=== PATIENT | female | born 1995 | race Two or more races ===

== ENCOUNTER 2018-03-09 11:45 | Outpatient (CLI) | END 2018-03-09 13:30 | disposition home or self-care (01) ==

== ENCOUNTER 2018-09-19 21:11 | Emergency (ER) | payer MEDICAID ==
[~2018-09-19] VITALS: Ht 165.1 cm; Wt 90.4 kg
[~2018-09-19 21:11] MED LIST: PREN-93 PO
[2018-09-19 21:15] VITALS: Ht 165.1 cm; Wt 90.4 kg
--- NOTE | 2018-09-20 00:53 | ERD ---
ER Documentation Chief Complaint Chief Complaint chest pain x 1 hour. no sob HPI This is a 23-year-old female presents emergency department for chest pain for about an hour. Also stated that she has headache that is on and off for about 4 days. Also stated that she feels like there is spider crawling in her left arm and also seeing animals. Does not hear any voices. Denies auditory hallucinations/delusions. Not suicidal. Not homicidal. Has good support system at home. ROS All systems reviewed and are negative except as per history of present illness. Medications Home Meds Active Scripts Ibuprofen* (Motrin*) 800 Mg Tab, 800 MG PO Q6H PRN for PAIN AND OR ELEVATED TEMP, #30 TAB Prov:SAEID ERNST 09/20/18 Hydroxyzine Hcl* (Hydroxyzine Hcl*) 50 Mg Tablet, 50 MG PO Q6H PRN for ANXIETY, #30 TAB Prov:SAEID ERNST F 09/20/18 Reported Medications Vit No.124/Iron/FA ( Vitamin Tablet) 1 Each Tablet, 1 EACH PO DAILY, TAB 03/09/18 Allergies Allergies: Coded Allergies: No Known Allergy (Unverified , 09/19/18) PMhx/Soc Medical and Surgical Hx: pt denies Medical Hx, pt denies Surgical Hx History of Surgery: No Anesthesia Reaction: No Hx Neurological Disorder: No Hx Respiratory Disorders: No Hx Cardiac Disorders: No Hx Psychiatric Problems: No Hx Miscellaneous Medical Probl: No Hx Alcohol Use: No Hx Substance Use: No Hx Tobacco Use: No Smoking Status: Never smoker Physical Exam Vitals Physical Exam Const: No acute distress Head: Atraumatic Eyes: Normal Conjunctiva ENT: Normal External Ears, Nose and Mouth. Neck: Full range of motion. No meningismus. Resp: Clear to auscultation bilaterally Cardio: Regular rate and rhythm, no murmurs Abd: Soft, non tender, non distended. Normal bowel sounds Skin: No petechiae or rashes Back: No midline or flank tenderness Ext: No cyanosis, or edema Neur: Awake and alert. No neurological deficits. Psych: Normal Mood and Affect. At this time, patient denies visual/auditory hallucinations/delusions. Not suicidal. not homicidal. Has the capacity to decide for herself. Results 24 hrs Laboratory Tests Test 09/20/18 00:57 09/20/18 01:06 Urine Color YELLOW Urine Clarity CLEAR Urine pH 5.0 Urine Specific [place]al 1.023 Urine Ketones NEGATIVE mg/dL Urine Nitrite NEGATIVE mg/dL Urine Bilirubin NEGATIVE mg/dL Urine Urobilinogen NEGATIVE mg/dL Urine Leukocyte Esterase NEGATIVE Harmony/ul Urine Hemoglobin NEGATIVE mg/dL Urine Glucose NEGATIVE mg/dL Urine Total Protein NEGATIVE mg/dl POC Beta HCG, Qualitative NEGATIVE Current Medications Medications Dose Sig/Patricia Start Time Status Last (Trade) Ordered Route PRN Stop Time Admin Dose Reason Admin 1 tab ONCE ONCE 09/20/18 DC 09/20/18 Acetaminophen PO 01:30 01:21 / 09/20/18 01:31 Hydrocodone Bitart ([place] (3/800)) Procedures/MDM Diagnostic tests: EKG: Sinus tachycardia with a ventricular rate of 104 bpm. No STEMI. Read by supervising physician. This case was discussed with my supervising physician, Dr. Franko Crandall who recommends for me to do influenza swab and chest x-ray plus POC urine with urinalysis. Influenza a and B: Negative for influenza A. Negative for influenza B. POC urine : Negative. Chest x-ray: No evidence of acute cardiopulmonary disease. Treatment: [place] p.o. Re-evaluation: Denies pain. Romberg test is negative. Patient denies visual/auditory hallucinations/delusions. Not suicidal. not homicidal. Has the capacity to decide for herself. Differential diagnosis I have low suspicion for subarachnoid hemorrhage, acute coronary syndrome, acute microinfarction, pneumonia, sepsis. Final diagnosis: Anxiety. Chest wall pain. Prescription: Hydroxyzine. Motrin. Follow-up with PCP in the next 24-48 hours. Come back here in the emergency department for any new symptoms or any worsening symptoms. All questions and concerns were answered. Patient and family members verbalized understanding and agreed with plan of care. Hemodynamically stable on discharge. Departure Diagnosis: Primary Impression: Viral syndrome Additional Impressions: Chest wall pain Anxiety Condition: Stable Additional Instructions: Follow-up with PCP in the next 24-48 hours. Come back here in the emergency department for any new symptoms or any worsening symptoms. SAEID ERNST Sep 20, 2018 00:53
[2018-09-20] MEDS ORDERED: HYDROCODONE/APAP (5/325) TAB PO ONE (01:30)
[2018-09-20] MEDS ORDERED: HYDR50TA15 PO (02:36)
[2018-09-20] MEDS ORDERED: IBUP800T48 PO (02:36)
[2018-09-20 02:43] VITALS: BP 134/72; PULSE 91; RESP 18
== END 2018-09-20 02:51 | disposition home or self-care (01) ==
LOC: FTE 21:11
DX: B34.9 Viral infection, unspecified (principal); R07.89 Other chest pain; F41.9 Anxiety disorder, unspecified
CPT/HCPCS: 71046; 81003; 81025; 87400; 93005; Z7502; Z7610